=== PATIENT | male | born 1975 | race Caucasian/White ===

== ENCOUNTER 2019-04-09 14:28 | Emergency (ER) | payer MEDICARE, MEDICAID ==
[2019-04-09 14:38] VITALS: BP 133/77
[2019-04-09] MEDS ORDERED: FAMOTIDINE INJ/PF 20 MG/2 ML SDV IV ONE (15:02)
--- NOTE | 2019-04-09 15:29 | ER Document Report ---
HPI - HPI Patient complains to provider of: Bee stings Time Seen by Provider: 04/09/19 14:57 Onset: Just prior to arrival Onset/Duration: Sudden Quality of pain: No pain Pain Level: 3 Context: This 44-year-old male presents emergency department with reports that he got stung by multiple bees while he was out in the [place]. Patient reports he supposed to have EpiPen but he does not have one. He reports he is very itchy right now and his throat feels like it is itchy. He was evaluated and treated by EMS prior to arrival. He received 50 mg of IV Benadryl. Patient reports he is never been intubated or hospitalized for the bee stings. Denies fever vomiting diarrhea. Patient speaking in a clear voice no distress. Associated Symptoms: None Exacerbated by: Denies Relieved by: Denies Similar symptoms previously: No Recently seen / treated by doctor: No Past Medical History - General Information source: Patient - Social History Smoking Status: Never Smoker Chew tobacco use (# tins/day): No Frequency of alcohol use: None Drug Abuse: None Lives with: Family Family History: None Patient has suicidal ideation: No Patient has homicidal ideation: No - Medical History Medical History: Negative Surgical Hx: Negative Vertical Provider Document - CONSTITUTIONAL Agree With Documented VS: Yes Exam Limitations: No Limitations General Appearance: WD/WN, No Apparent Distress - Patient speaking in a clear voice no distress - INFECTION CONTROL TRAVEL OUTSIDE OF THE [place] IN LAST 30 DAYS: No - HEENT HEENT: Atraumatic, Normal ENT Exam, Normocephalic. negative: Conjuctival Injection, Pharyngeal Exudate, Pharyngeal Erythema, Tympanic Membrane Red, Tympanic Membrane Bulging - NECK Neck: Normal Inspection, Supple. negative: Lymphadenopathy-Left, Lymphadenopathy-Right - RESPIRATORY Respiratory: Breath Sounds Normal, No Respiratory Distress. 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 He received 50 mg of Benadryl from EMS. Patient will be treated with Pepcid p.o. fluids observation. 04/09/19 16:27 Patient reports he feels much better. No itchiness. No rash. Speaking in a clear voice. Patient was instructed on Benadryl Pepcid and prescribed an EpiPen. He verbalized understanding to all instructions. Dictation of this chart was performed using voice recognition software; therefore, there may be some unintended grammatical errors. - Vital Signs Vital signs: Temp Pulse Resp BP Pulse Ox 97.6 F 91 18 133/77 H 99 04/09/19 14:36 04/09/19 14:36 04/09/19 14:36 04/09/19 14:36 04/09/19 14:36 Discharge - Discharge Clinical Impression: Allergic reaction Qualifiers: Encounter type: initial encounter Qualified Code(s): T78.40XA - Allergy, unspecified, initial encounter Condition: Stable Disposition: HOME, SELF-CARE Instructions: Acute Allergic Reaction ([facility]), Use of Diphenhydramine Additional Instructions: *You have been evaluated for allergic reaction to bee's *Take medication as prescribed *Take Benadryl as indicated for the next 24 hours Obtain an EpiPen from the pharmacy and keep it with you at all times. *Follow up with a primary care provider within one week for recheck *Return to ED for worsening condition, changes, needs, difficulty breathing, concerns Prescriptions: Epinephrine [Epipen 2-Henri] 0.3 mg IJ PRN PRN #1 [id number].injct PRN Reason: Famotidine [Pepcid 20 mg Tablet] 20 mg PO DAILY #12 tablet Forms: Elevated Blood Pressure
== END 2019-04-09 16:30 | disposition home or self-care (01) ==
LOC: EDBD → ER 14:28
DX: T63.441A Toxic effect of venom of bees, accidental (unintentional), initial encounter (principal); X58.XXXA Exposure to other specified factors, initial encounter
CPT/HCPCS: 99283; 96374; S0028

== ENCOUNTER 2019-07-10 23:20 | Emergency (ER) | payer MEDICARE, MEDICAID ==
[2019-07-11] MEDS ORDERED: NORMAL SALINE 1000 ML 1,000 ML IV ONE (01:28)
[2019-07-11 01:48] LABS: ABSOLUTE BASOPHILS # (AUTO) 0.1 10^3/uL (0.0-0.2); ABSOLUTE LYMPHOCYTES (AUTO) 0.9 10^3/uL (0.5-4.7); ABSOLUTE MONOCYTES (AUTO) 0.7 10^3/uL (0.1-1.4); ABSOLUTE NEUT (AUTO) 3.9 10^3/uL (1.7-8.2); BASOPHILS % (AUTO) 0.9 % (0-2); EOSINOPHILS % (AUTO) 0.4 % (0-6); HEMATOCRIT 44.4 % (37.9-51.0); LYMPHOCYTES % (AUTO) 16.1 % (13-45); MEAN CORPUSCULAR HEMOGLOBIN 29.1 pg (27.0-33.4); MEAN CORPUSCULAR HGB CONC 33.8 g/dL (32.0-36.0); MEAN CORPUSCULAR VOLUME 86 fl (80-97); MONOCYTES % (AUTO) 12.3 % (3-13); PLATELET COUNT 191 10^3/uL (150-450); RED BLOOD COUNT 5.15 10^6/uL (4.35-5.55); SEGMENTED NEUTROPHILS % (AUTO) 70.3 % (42-78); TOTAL CELLS COUNTED % (AUTO) 100 %; WHITE BLOOD COUNT 5.6 10^3/uL (4.0-10.5)
--- NOTE | 2019-07-11 01:53 | ER Document Report ---
ED General - General Chief Complaint: Chest Pain Stated Complaint: RASH/FEVER Time Seen by Provider: 07/11/19 01:09 Primary Care Provider: MONIK MARINO MD [ACTIVE STAFF] - Follow up in 3-5 days Notes: 44-year-old male presents with dizziness, decreased appetite, and chest tightness for 5 days. Patient also reports fever at home of 102F that is relieved with Tylenol/Motrin. Patient also states he developed a rash on his abdomen tonight that he denies is itchy or painful. Patient denies any coughing, nausea/vomiting/diarrhea, abdominal pain, or shortness of breath. Patient states last time he felt like this he had a "infection in his blood" and was admitted to the hospital for a few days. TRAVEL OUTSIDE OF THE [place] IN LAST 30 DAYS: No - Related Data Allergies/Adverse Reactions: amoxicillin Allergy (Verified 04/09/19 14:30) Penicillins Allergy (Verified 04/09/19 14:30) Past Medical History - Social History Smoking Status: Former Smoker Family History: None Patient has suicidal ideation: No Patient has homicidal ideation: No Review of Systems - Review of Systems Notes: Constitutional: Positive for fever. HENT: Negative for sore throat. Eyes: Negative for visual changes. Cardiovascular: Positive for chest pain. Respiratory: Negative for shortness of breath. Gastrointestinal: Negative for abdominal pain, vomiting or diarrhea. Genitourinary: Negative for dysuria. Musculoskeletal: Negative for back pain. Skin: Positive for rash. Neurological: Negative for headaches, weakness or numbness. 10 point ROS negative except as marked above and in HPI. Physical Exam - Vital signs Vitals: Temp Pulse Resp BP Pulse Ox 97.8 F 78 16 118/63 99 07/10/19 23:41 07/10/19 23:41 07/10/19 23:41 07/10/19 23:41 07/10/19 23:41 - Notes Notes: GENERAL: Well-appearing, well-nourished and in no acute distress. HEAD: Atraumatic, normocephalic. EYES:Extraocular movements intact, sclera anicteric, conjunctiva are normal. NECK: Normal range of motion, supple without lymphadenopathy or JVD. LUNGS: Breath sounds clear to auscultation bilaterally and equal. No wheezes rales or rhonchi. HEART: Regular rate and rhythm without murmurs, rubs or gallops. ABDOMEN: Soft, nontender. No guarding, no rebound. No masses appreciated. EXTREMITIES: Normal range of motion, no pitting or edema. No clubbing or cyanosis. NEUROLOGICAL: Cranial nerves II through XII grossly intact. Normal speech, normal gait. PSYCH: Normal mood, normal affect. SKIN: Warm, Dry, normal turgor, generalized erythematous rash noted to abdomen Course - Re-evaluation Re-evalutation: 07/11/19 44-year-old male presents with chest pain, dizziness, fever, decreased appetite. Patient is nontoxic well-appearing. Abdomen, soft nontender. Lungs clear to auscultation bilaterally. RRR. Patient is currently afebrile in ER. Septic versus cardiac work-up initiated. EKG shows normal sinus rhythm at [address] elevation. No leukocytosis. Lactic is WNL. All labwork and UA/CXR reassuring. 07/11/19 04:58 PO challenge passed. Discussed all results with pt. Pt given follow up with PCP. Return precautions given. All questions/concerns addressed prior to discharge. - Vital Signs Vital signs: Temp Pulse Resp BP Pulse Ox 99.2 F 71 7 L 111/80 96 07/11/19 03:30 07/11/19 03:03 07/11/19 03:00 07/11/19 03:03 07/11/19 03:00 - Laboratory Result Diagrams: 07/11/19 01:32 07/11/19 01:32 Discharge - Discharge Clinical Impression: Viral syndrome Condition: Stable Disposition: HOME, SELF-CARE Instructions: Viral Syndrome ([facility]) Additional Instructions: Your work-up today was reassuring. Your chest x-ray did not show any pneumonias or infection. Your urine did not show an infection. Please take Tylenol/Motrin for fever/pain. Follow-up with your primary care doctor in 3 to 5 days or with 1 of the clinics listed. Return to ER for any worsening symptoms, including worsening fever, vomiting, abdominal pain, worsening rash, chest pain, shortness of breath, or any other symptoms that are concerning to you. Forms: Parent Work Note Referrals: MONIK MARINO MD [ACTIVE STAFF] - Follow up in 3-5 days
[2019-07-11 02:06] LABS: ALKALINE PHOSPHATASE 76 U/L (38-126); ANION GAP 9 (5-19); ASPARTATE AMINO TRANSFERASE 28 U/L (17-59); BILIRUBIN,DIRECT 0.2 mg/dL (0.0-0.4); BILIRUBIN,TOTAL 0.4 mg/dL (0.2-1.3); BLOOD UREA NITROGEN 12 mg/dL (7-20); CALCIUM 9.1 mg/dL (8.4-10.2); CARBON DIOXIDE 30 mmol/L (22-30); CHLORIDE 100 mmol/L (98-107); GLUCOSE 88 mg/dL (75-110); POTASSIUM 4.1 mmol/L (3.6-5.0)
--- NOTE | 2019-07-11 02:53 | RADIOLOGY REPORT (SQ) ---
CLINICAL HISTORY: chest pain COMPARISON: None. TECHNIQUE: XR CHEST 2 VIEWS 07/11/2019 1:10 AM ASSET PROTECTION ASSISTANT FINDINGS: Cardiac silhouette is normal in size. Lungs are clear without consolidation, atelectasis, mass or edema. There is no pleural effusion. There is no pneumothorax. There are no acute osseous findings. IMPRESSION: Clear lungs.
[2019-07-11 03:13] LABS: APPEARANCE,URINE CLEAR; BILIRUBIN,URINE NEGATIVE (NEGATIVE); COLOR,URINE YELLOW; GLUCOSE, URINE NEGATIVE (NEGATIVE); KETONES,URINE NEGATIVE (NEGATIVE); PROTEIN,URINE NEGATIVE (NEGATIVE); URINE SPECIFIC GRAVITY 1.019; UROBILINOGEN,URINE NEGATIVE mg/dL (<2.0)
[2019-07-11 05:18] VITALS: BP 107/79
--- NOTE | 2019-07-11 06:51 | EKG REPORT ---
SEVERITY:- NORMAL ECG - SINUS RHYTHM : Confirmed by: Andrade Paulino MD 11-Jul-2019 06:50:53
== END 2019-07-11 05:18 | disposition home or self-care (01) ==
LOC: ER 23:20
DX: B34.9 Viral infection, unspecified (principal); R42 Dizziness and giddiness; R63.0 Anorexia; R07.89 Other chest pain; R21 Rash and other nonspecific skin eruption; Z88.0 Allergy status to penicillin; Z87.891 Personal history of nicotine dependence
CPT/HCPCS: 93005; 99285; 96360; 96361; 36415; 87040; 85025; 80053; 81001; 84484; 83605; 71046; 93010; J7030